=== PATIENT | female | born 1995 | race American Indian/Alaskan Native ===

== ENCOUNTER 2017-09-23 12:36 | Emergency (ER) | payer MEDICAID ==
[2017-09-23 13:32] VITALS: O2SAT 100
[2017-09-23 14:21] LABS: HCG,QUALITATIVE URINE POSITIVE (NEGATIVE)
[2017-09-23 14:29] LABS: SQUAMOUS EPITHIAL 2 /hpf (0-5); URINE BACTERIA RARE (<OCC); URINE BILIRUBIN NEGATIVE (NEGATIVE); URINE BLOOD NEGATIVE (NEGATIVE); URINE CLARITY Clear (Clear); URINE COLOR Yellow (YELLOW); URINE GLUCOSE (UA) NORMAL (Normal); URINE LEUKOCYTE ESTERASE NEG Leu/uL (Negative); URINE NITRATE NEGATIVE (NEGATIVE); URINE PROTEIN NEGATIVE (NEGATIVE)
--- NOTE | 2017-09-23 15:50 | C.PDOC ---
History Of Present Illness 22-year-old female, presents to the emergency department with complaints of mild suprapubic cramping and vaginal discharge for the past few days. Patient denies any nausea/vomiting, change in bowel habits, dizziness, or any other associated symptoms. No other complaints at this time. Time Seen by Provider: 09/23/17 14:33 Chief Complaint (Nursing): Abdominal Pain History Per: Patient History/Exam Limitations: no limitations Past Medical History Reviewed: Historical Data, Nursing Documentation, Vital Signs Vital Signs: Last Vital Signs Temp 97.7 F 09/23/17 16:02 Pulse 72 09/23/17 16:02 Resp 18 09/23/17 16:02 BP 102/60 09/23/17 16:02 Pulse Ox 100 09/23/17 16:23 - Medical History PMH: Asthma Family History: States: No Known Family Hx - Social History Hx Alcohol Use: Yes Hx Substance Use: Yes Review Of Systems Except As Marked, All Systems Reviewed And Found Negative. Constitutional: Negative for: Fever, Chills Respiratory: Negative for: Shortness of Breath Gastrointestinal: Negative for: Nausea, Vomiting Genitourinary: Positive for: Vaginal Discharge, Pelvic Pain. Negative for: Vaginal Bleeding Physical Exam - Physical Exam Appears: Non-toxic, No Acute Distress Skin: Warm, Dry, No Rash Head: Atraumatic, Normacephalic Eye(s): bilateral: Normal Inspection, PERRL, EOMI Nose: Normal Oral Mucosa: Moist Lips: Normal Appearing Neck: Normal ROM, Supple Chest: Symmetrical Cardiovascular: Rhythm Regular, No Friction Rub, No Murmur Respiratory: Normal Breath Sounds, No Accessory Muscle Use, No Stridor, No Wheezing Gastrointestinal/Abdominal: Bowel Sounds (active), Soft, No Tenderness, No Guarding, No Rebound Back: Normal Inspection, No CVA Tenderness Pelvic: Normal External Exam, Vaginal Discharge (clear), No Cervical Motion Tenderness, No Cervix Open Extremity: Normal ROM, No Swelling Neurological/Psych: Oriented x3, Normal Speech, Normal Motor Gait: Steady ED Course And Treatment O2 Sat by Pulse Oximetry: 100 (on RA) Pulse Ox Interpretation: Normal Medical Decision Making Medical Decision Making: The patient has no pain or tenderness on exam. Normal pelvic exam and normal UA. Patient was instructed to follow up with the OBGYN within 1-2 days. Return if worsened. Disposition - Disposition Referrals: [facility] [Outside] [facility] [employer] [facility] [Outside] Disposition: HOME/ ROUTINE Disposition Time: 16:20 Condition: GOOD Additional Instructions: Follow up with the medical doctor/clinic within 1-2 days without fail. Return if worsened. Instructions: (ED) Forms: [employer] (Yakut) - Clinical Impression Clinical Impression: - Scribe Statement The provider has reviewed the documentation as recorded by the Scribe (Narendra Rao) All medical record entries made by the Scribe were at my direction and personally dictated by me. I have reviewed the chart and agree that the record accurately reflects my personal performance of the history, physical exam, medical decision making, and the department course for this patient. I have also personally directed, reviewed, and agree with the discharge instructions and disposition.
[2017-09-23 16:04] VITALS: BP 102/60; PULSE 72; RESP 18; TEMP 97.7
== END 2017-09-23 16:26 | disposition home or self-care (01) ==
LOC: C.ER 12:36
DX: O26.90 Pregnancy related conditions, unspecified, unspecified trimester (principal); Z3A.00 Weeks of gestation of pregnancy not specified